=== PATIENT | male | born 1985 | race African-American/Black ===

== ENCOUNTER 2016-08-26 18:14 | Emergency (ER) | payer BC ==
[~2016-08-26 18:14] MED LIST: ALBUTEROL17 GM INH; DOXYCYCLINE HY100 M3 PO; ERY-TAB500 MG PO; NO MEDICATIONS; PREDNISONE PO; STAHIST AD TAB1 EACH PO
== END 2016-08-26 20:57 | disposition home or self-care (01) ==
LOC: CED 18:14 → CFTX 18:14
DX: L25.5 Unspecified contact dermatitis due to plants, except food (principal)
CPT/HCPCS: 99282

== ENCOUNTER 2016-09-09 07:00 | Emergency (ER) | payer BC ==
--- NOTE | ~2016-09-09 | EKG ---
PATIENT: KATEY PARADA UNIT #: [id number] Ventricular Rate: 82 BPM Atrial Rate: 82 BPM P-R Interval: 128 ms QRS Duration: 86 ms Q-T Interval: 378 ms QTC Calculation(Bezet): 441 ms P [place]: 72 degrees Calculated R [place]: 53 degrees Calculated T [place]: 38 degrees Diagnosis Line: Normal sinus rhythm Diagnosis Line: Minimal voltage criteria for LVH, may be normal Diagnosis Line: variant Diagnosis Line: Borderline ECG Diagnosis Line: No previous ECGs available Diagnosis Line: Confirmed by NELSON SAMS MD ([id number]) on Diagnosis Line: 09/10/2016 1:31:54 PM INTERPRETING MD: NAVEEN
--- NOTE | ~2016-09-09 | CR72 ---
[facility] A Service of [facility] & [facility] RADIOLOGY TEXT RESULTS PATIENT: KATEY PARADA JR LOCATION: [facility] : 83 UNIT #: [id number] AGE: [address]: Giuliano Oliver MD SEX: M ORDER DR: [id number] [facility] [address] [place], [place] [address] [id number] E MR#: [id number] Acc #: [id number] NAME: KATEY PARADA JR : 1985 SEX: M STUDY DATE/TIME: 09/09/2016 7:50 UNIT: [facility] ROOM: STUDY DESCRIPTION: CR Chest Single View Portable Attending Physician: Giuliano Oliver M.D. Ordering Physician: Giuliano Oliver M.D. Primary Care Physician: Juancarlos Robertson M.D. MEDICAL IMAGING REPORT This report is preliminary unless electronic signature is present EXAM Portable chest HISTORY Palpitations and shortness of breath accompanied by chest pain diffusely onset today. FINDINGS A single AP portable view of the chest shows both lungs to be clear. The heart is normal in size. The mediastinal contour is normal. No significant bone abnormalities are seen. IMPRESSION Normal portable chest. Dictated by... Nuno Boss M.D. THIS IS AN ELECTRONICALLY VERIFIED REPORT Nuno Boss M.D. at 09/09/2016 3:46 PM MERI/kevin TD: 09/09/2016 11:05 JOB #: [id number] MEDICAL IMAGING REPORT Page 1 of 1 COPY
[2016-09-09 07:58] LABS: BASOPHIL% 0.6 % (0-2.5); EOSINOPHIL# 0.1 X10e3 (0-0.7); EOSINOPHIL% 1.6 % (0.0-7.0); HEMATOCRIT 48.7 % (38.0-50.0); HEMOGLOBIN 15.5 gm/dL (13.0-16.0); LYMPHOCYTE# 2.5 X10e3 (1.0-3.5); LYMPHOCYTE% 37.9 % (17.0-45.0); MEAN CELL VOLUME 82.1 FL (83-96); MEAN CORPUSCULAR HEMOGLOBIN 26.1 PG (28-34); MEAN CORPUSCULAR HGB CONC 31.8 g/dL (30-36); MEAN PLATELET VOLUME 8.7 FL (6.5-11.5); MONOCYTE# 0.6 X10e3 (0-1.0); MONOCYTE% 9.6 % (3.0-12.0); NEUTROPHIL# 3.3 X10e3 (1.5-7.1); NEUTROPHIL% 50.3 % (40-75); RED BLOOD COUNT 5.94 X10e (3.90-5.60); RED CELL DISTRIBUTION WIDTH 14.5 % (11.0-15.5); WHITE BLOOD COUNT 6.5 X10e3 (4.0-10.5)
[2016-09-09 08:02] LABS: POC - CKMB <1.0 ng/mL (0.0-7.9); POC - TROPONIN <0.05 ng/mL (<=0.05)
[2016-09-09 08:14] LABS: DIFF IND YES; PLATELET COUNT 141 X10e3 (140-420)
[2016-09-09 08:19] LABS: ANISOCYTOSIS SL; HYPOCHROMIA SL; PLATELET ESTIMATE NORMAL (NORMAL)
[2016-09-09 08:20] LABS: ALBUMIN SERUM 4.1 g/dL (3.5-5.0); BILIRUBIN, DIRECT 0.1 mg/dL (0.0-0.2); BILIRUBIN,INDIRECT 0.5 mg/dL (0.0-0.9); BILIRUBIN,TOTAL 0.6 mg/dL (0.2-2.0); BUN/CREATININE RATIO 12.72; CALCIUM SERUM 8.7 mg/dL (8.4-10.2); CREATININE SERUM 1.1 mg/dL (0.6-1.4); GLOM FILT RATE Estimated 102.4 mL/min (>60); MAGNESIUM 1.9 mg/dL (1.6-3.0); POTASSIUM 3.7 mmol/L (3.5-5.1); PROTEIN TOTAL SERUM 7.5 g/dL (6.0-8.3)
== END 2016-09-09 09:05 | disposition home or self-care (01) ==
LOC: CED 07:00
PROVIDERS: Emergency Medicine
DX: R00.2 Palpitations (principal); R06.02 Shortness of breath; Z88.0 Allergy status to penicillin; Z88.1 Allergy status to other antibiotic agents
CPT/HCPCS: 36415; 71010; 80048; 80076; 82553; 83735; 84443; 84484; 85025; 93005; 99284